=== PATIENT | male | born 2000 | race Caucasian/White ===

== ENCOUNTER 2022-07-17 23:38 | Emergency (ER) | payer MEDICAID, OTHER ==
[~2022-07-17] VITALS: Ht 165.1 cm; Wt 75.0 kg
[2022-07-17 23:43] VITALS: BP 142/80
[2022-07-18] MEDS ORDERED: KETOROLAC 30MG/ML VIAL IM ONE (01:15)
[2022-07-18 01:36] LABS: BASOPHILS % 0.5 % (0.0-2.0); EOSINOPHILS % 1.6 % (0.0-5.0); HEMATOCRIT. 44.3 % (42.0-52.0); HEMOGLOBIN. 15.4 g/dL (14.0-18.0); LYMPHOCYTES % 20.9 % (20.0-50.0); MEAN CORPUSCULAR HEMOGLOBIN 29.8 pg (28.0-32.0); MEAN CORPUSCULAR VOLUME 85.6 fL (80.0-94.0); MEAN PLATELET VOLUME 8.3 fl (7.4-10.4); MONOCYTES % 7.3 % (2.0-8.0); NEUTROPHILS % 69.7 % (40.0-76.0); PLATELET 318 x1000/uL (130-400); RED BLOOD CELL COUNT 5.18 mill/uL (4.7-6.1); RED CELL DISTRIBUTION WIDTH 13.1 % (11.6-14.6)
[2022-07-18 02:07] LABS: CHLORIDE 103 mEq/L (98-107)
[2022-07-18] MEDS ORDERED: ACET-2708 MT (02:55)
[2022-07-18 04:17] LABS: CLARITY URINE CLEAR (CLEAR); COLOR URINE YELLOW (YELLOW); KETONES URINE NEGATIVE (NEGATIVE); LEUKOCYTE ESTERASE URINE NEGATIVE (NEGATIVE); NITRITE URINE NEGATIVE (NEGATIVE); OCCULT BLOOD URINE NEGATIVE (NEGATIVE); PH URINE 7.5 (4.5-8.0); PROTEIN URINE NEGATIVE (NEGATIVE); SPECIFIC GRAVITY URINE 1.007 (1.005-1.030); UROBILINOGEN URINE 0.2 E.U./dL (0.2-1.0)
== END 2022-07-18 03:05 | disposition home or self-care (01) ==
LOC: ER 23:38
DX: R10.13 Epigastric pain (principal); Z86.59 Personal history of other mental and behavioral disorders
CPT/HCPCS: 36415; 76705; 80053; 81003; 83690; 85025; 96372; 99285; J1885

== ENCOUNTER 2022-12-14 12:52 | Emergency (ER) | payer OTHER ==
[~2022-12-14] VITALS: Ht 170.2 cm; Wt 82.0 kg
[~2022-12-14 12:52] MED LIST: ACET-2708 MT
[2022-12-14 13:04] VITALS: O2SAT 98
[2022-12-14] MEDS ORDERED: SALI45SP MM (14:17)
[2022-12-14 14:35] VITALS: BP 140/81; PULSE 94; RESP 14; TEMP 98.1
== END 2022-12-14 15:06 | disposition home or self-care (01) ==
LOC: ER 12:52
DX: R68.2 Dry mouth, unspecified (principal); J45.909 Unspecified asthma, uncomplicated; F20.9 Schizophrenia, unspecified
CPT/HCPCS: 99283; Z7610 ×3

== ENCOUNTER 2022-12-19 22:16 | Emergency (ER) | payer OTHER ==
[~2022-12-19] VITALS: Ht 167.6 cm; Wt 74.0 kg
[~2022-12-19 22:16] MED LIST changes: +SALI45SP MM
[2022-12-19 22:24] VITALS: BP 138/79; PULSE 88; RESP 16; TEMP 98.1; O2SAT 98
== END 2022-12-20 00:25 | disposition home or self-care (01) ==
LOC: ER 22:16
DX: R13.10 Dysphagia, unspecified (principal); J45.909 Unspecified asthma, uncomplicated; F20.9 Schizophrenia, unspecified
CPT/HCPCS: 99283

== ENCOUNTER 2023-01-06 20:00 | Emergency (ER) | payer OTHER ==
[~2023-01-06] VITALS: Ht 170.2 cm; Wt 78.0 kg
[2023-01-06 20:04] VITALS: BP 145/98; TEMP 97.6; O2SAT 100
[2023-01-06 20:51] LABS: BASOPHILS % 0.5 % (0.0-2.0); EOSINOPHILS % 1.8 % (0.0-5.0); HEMATOCRIT. 45.8 % (42.0-52.0); LYMPHOCYTES % 25.7 % (20.0-50.0); MEAN CORPUSCULAR HGB CONC 34.9 g/dL (31.0-37.0); MEAN CORPUSCULAR VOLUME 85.9 fL (80.0-94.0); MEAN PLATELET VOLUME 8.8 fl (7.4-10.4); MONOCYTES % 6.6 % (2.0-8.0); NEUTROPHILS % 65.4 % (40.0-76.0); PLATELET 317 x1000/uL (130-400); RED BLOOD CELL COUNT 5.34 mill/uL (4.7-6.1); RED CELL DISTRIBUTION WIDTH 12.8 % (11.6-14.6); WHITE BLOOD COUNT 10.1 x1000/uL (4.5-11.0)
[2023-01-06 20:58] LABS: CHLORIDE 103 mEq/L (98-107); INDEX HEMOLYSI 1 (1-3); INDEX ICTERIC 2 (1-4); INDEX LIPEMIC 1 (1-3); POTASSIUM 3.9 mEq/L (3.5-5.1); SODIUM 137 mEq/L (136-145)
[2023-01-06 21:00] LABS: DIFFERENTIAL COMMENT 1
[2023-01-06 21:13] LABS: ALANINE AMINOTRANSFERASE 47 IU/L (13-61); ALBUMIN 4.5 g/dL (3.4-5.0); ASPARTATE AMINOTRANSFERASE 30 IU/L (15-37); BILIRUBIN TOTAL 1.1 mg/dL (0.1-1.0); CALCIUM 9.6 mg/dL (8.5-10.1); CARBON DIOXIDE 27 mEq/L (21-32); CREATININE 0.9 mg/dL (0.6-1.3); GLUCOSE 113 mg/dL (70-105); PROTEIN TOTAL 8.8 g/dL (6.0-8.3); TROPONIN I HIGH SENSITIVITY 4 ng/L (<78); UREA NITROGEN BLOOD 10 mg/dL (7-21)
[2023-01-06 21:16] LABS: NT PRO B-TYPE NATRIURETIC PEP < 5 pg/mL (5-125)
[2023-01-06 23:17] VITALS: PULSE 93; RESP 20
[2023-01-06 23:48] LABS: TROPONIN I HIGH SENSITIVITY < 4 ng/L (<78)
== END 2023-01-07 00:13 | disposition home or self-care (01) ==
LOC: ER 20:21
DX: R57.8 Other shock (principal); F20.9 Schizophrenia, unspecified; J45.909 Unspecified asthma, uncomplicated
CPT/HCPCS: 36415; 71045; 80053; 83880; 84484; 85025; 93005; 99285

== ENCOUNTER 2023-02-17 03:03 | Emergency (ER) | payer OTHER ==
[~2023-02-17] VITALS: Ht 167.6 cm; Wt 75.0 kg
[2023-02-17 03:08] VITALS: BP 136/98; PULSE 86; RESP 18; TEMP 98.7; O2SAT 99
== END 2023-02-17 03:45 | disposition home or self-care (01) ==
LOC: ER 03:05
DX: Z00.00 Encounter for general adult medical examination without abnormal findings (principal); J45.909 Unspecified asthma, uncomplicated; Z86.59 Personal history of other mental and behavioral disorders
CPT/HCPCS: 99283